=== PATIENT | female | born 1970 | race African-American/Black ===

== ENCOUNTER 2023-01-14 22:49 | Inpatient (IN) | payer MEDICAID, OTHER ==
[~2023-01-14] VITALS: Ht 172.7 cm; Wt 63.5 kg
[~2023-01-14 22:49] MED LIST: AMLO10TA80 PO; ASPI-1160 PO; CLOP-31 PO; GLIP5TAB12 MT; LIP40 PO
[2023-01-14] MEDS ORDERED: DEXTROSE 50% WATER 50ML SYRINGE IV ONE ×2 (23:42→23:45)
[2023-01-14] MEDS ORDERED: OCTREOTIDE ACETATE 50 MCG/ML 1ML IV ONE (23:45)
[2023-01-14] MEDS ORDERED: DEXT 10% WATER 1,000 ML IV ONE (23:45)
[2023-01-15 01:49] LABS: *AMPHETAMINES SCREEN URINE NEGATIVE (NEGATIVE); *BARBITURATES SCREEN URINE NEGATIVE (NEGATIVE); *BENZODIAZEPINES SCREEN URINE NEGATIVE (NEGATIVE); *COCAINE SCREEN URINE NEGATIVE (NEGATIVE); CANNABINOID URINE SCREEN NEGATIVE (NEGATIVE); METHADONE URINE SCREEN NEGATIVE (NEGATIVE); OPIATES URINE SCREEN NEGATIVE (NEGATIVE); PHENCYCLIDINE URINE SCREEN NEGATIVE (NEGATIVE)
[2023-01-15 01:50] LABS: BASOPHILS % 0.6 % (0.0-2.0); EOSINOPHILS % 0.8 % (0.0-5.0); HEMATOCRIT. 32.4 % (36.0-48.0); HEMOGLOBIN. 10.7 g/dL (12.0-16.0); LYMPHOCYTES % 13.7 % (20.0-50.0); MEAN CORPUSCULAR HEMOGLOBIN 31.9 pg (28.0-32.0); MEAN CORPUSCULAR VOLUME 96.3 fL (81.0-99.0); MEAN PLATELET VOLUME 7.4 fl (7.4-10.4); MONOCYTES % 9.9 % (2.0-8.0); PLATELET 364 x1000/uL (130-400); RED BLOOD CELL COUNT 3.36 mill/uL (4.2-5.4); RED CELL DISTRIBUTION WIDTH 13.7 % (11.6-14.6)
[2023-01-15] MEDS ORDERED: DEXTROSE 50% WATER 50ML SYRINGE IV ONE (02:00)
[2023-01-15 02:01] LABS: CHLORIDE 103 mEq/L (98-107)
[2023-01-15 02:10] LABS: ETHANOL BLOOD < 10 mg/dL
[2023-01-15] MEDS ORDERED: LORAZEPAM 0.5MG TABLET PO PRN (09:15)
[2023-01-15] MEDS ORDERED: ACETAMINOPHEN 325MG TABLET PO PRN ×2 (09:15)
[2023-01-15] MEDS ORDERED: HYDROCODONE/ACETAMINOPHEN 5/325MG TABLET PO PRN (09:15)
[2023-01-15] MEDS ORDERED: DOCUSATE SODIUM 100MG CAPSULE PO PRN (09:15)
[2023-01-15] MEDS ORDERED: ONDANSETRON HCL 4MG/2ML INJ IV PRN (09:15)
[2023-01-15] MEDS ORDERED: IPRATROPIUM/ALBUTEROL 0.5-3(2.5)MG/3ML NEB HHN PRN (09:15)
[2023-01-15] MEDS: CLONIDINE 0.1MG TABLET PO PRN ×2 (09:26→18:31)
[2023-01-15 10:00] VITALS: BP 179/109
[2023-01-15 10:47] VITALS: BP 179/109
[2023-01-15 12:00] VITALS: BP 156/80
[2023-01-15] MEDS: CLOPIDOGREL 75MG TABLET PO SCH (12:20)
[2023-01-15] MEDS: ASPIRIN 81MG TABLET PO SCH (12:20)
[2023-01-15] MEDS ORDERED: DEXTROSE 50% WATER 50ML SYRINGE IV PRN (12:45)
[2023-01-15 15:00] VITALS: BP 168/93
[2023-01-15 15:31] LABS: HEPATITIS B SURFACE ANTIGEN NEGATIVE
[2023-01-15 16:00] VITALS: BP 174/87
[2023-01-15] MEDS: BLOOD SUGAR DIAGNOSTIC STRIP TEST SCH ×2 (16:37→20:21)
[2023-01-15] MEDS: INSULIN LISPRO 100 UNITS/ML SUBCUT SCH ×2 (17:33→20:21)
[2023-01-15 20:00] VITALS: BP 133/77
[2023-01-15] MEDS ORDERED: NALOXONE HCL 0.4MG/ML VIAL IV PRN (20:15)
[2023-01-15] MEDS: ATORVASTATIN CALCIUM 40MG TABLET PO SCH (20:19)
[2023-01-16] VITALS: BP 150/77
[2023-01-16 04:00] VITALS: BP 130/70
[2023-01-16 05:47] LABS: BASOPHILS % 0.8 % (0.0-2.0); EOSINOPHILS % 1.9 % (0.0-5.0); HEMATOCRIT. 27.7 % (36.0-48.0); HEMOGLOBIN. 9.2 g/dL (12.0-16.0); LYMPHOCYTES % 20.3 % (20.0-50.0); MEAN CORPUSCULAR HEMOGLOBIN 32.4 pg (28.0-32.0); MEAN CORPUSCULAR VOLUME 97.1 fL (81.0-99.0); MEAN PLATELET VOLUME 7.8 fl (7.4-10.4); MONOCYTES % 11.9 % (2.0-8.0); NEUTROPHILS % 65.1 % (40.0-76.0); PLATELET 303 x1000/uL (130-400); RED BLOOD CELL COUNT 2.85 mill/uL (4.2-5.4)
[2023-01-16] MEDS: BLOOD SUGAR DIAGNOSTIC STRIP TEST SCH ×4 (06:20→21:39)
[2023-01-16] MEDS: INSULIN LISPRO 100 UNITS/ML SUBCUT SCH ×4 (06:24→21:00)
[2023-01-16 08:00] VITALS: BP 157/86
[2023-01-16] MEDS: ASPIRIN 81MG TABLET PO SCH (09:16)
[2023-01-16] MEDS: AMLODIPINE 10MG TABLET PO SCH (09:16)
[2023-01-16] MEDS: CLOPIDOGREL 75MG TABLET PO SCH (09:17)
[2023-01-16 12:00] VITALS: BP 148/70
[2023-01-16] MEDS: INSULIN GLARGINE 100 UNITS/ML SUBCUT SCH (12:45)
[2023-01-16 16:00] VITALS: BP 157/86
[2023-01-16 20:00] VITALS: BP 169/94
[2023-01-16] MEDS: ATORVASTATIN CALCIUM 40MG TABLET PO SCH (21:38)
[2023-01-16] MEDS: CLONIDINE 0.1MG TABLET PO PRN (21:39)
[2023-01-17] VITALS (12 sets, daily range): BP systolic 124–168; BP diastolic 63–90
[2023-01-17 06:33] LABS: BASOPHILS % 0.5 % (0.0-2.0); HEMATOCRIT. 28.2 % (36.0-48.0); HEMOGLOBIN. 9.2 g/dL (12.0-16.0); LYMPHOCYTES % 28.2 % (20.0-50.0); MEAN CORPUSCULAR HEMOGLOBIN 31.7 pg (28.0-32.0); MEAN CORPUSCULAR VOLUME 97.1 fL (81.0-99.0); MEAN PLATELET VOLUME 7.3 fl (7.4-10.4); MONOCYTES % 14.6 % (2.0-8.0); NEUTROPHILS % 54.7 % (40.0-76.0); PLATELET 300 x1000/uL (130-400); RED CELL DISTRIBUTION WIDTH 13.8 % (11.6-14.6)
[2023-01-17] MEDS: BLOOD SUGAR DIAGNOSTIC STRIP TEST SCH ×3 (06:43→16:40)
[2023-01-17] MEDS: INSULIN LISPRO 100 UNITS/ML SUBCUT SCH ×3 (07:10→17:10)
[2023-01-17] MEDS: ASPIRIN 81MG TABLET PO SCH (09:43)
[2023-01-17] MEDS: AMLODIPINE 10MG TABLET PO SCH (09:44)
[2023-01-17] MEDS: CLOPIDOGREL 75MG TABLET PO SCH (09:44)
[2023-01-17] MEDS: INSULIN GLARGINE 100 UNITS/ML SUBCUT SCH (09:53)
[2023-01-17] MEDS ORDERED: LANTUSUD SUBCUT (12:39)
== END 2023-01-17 20:43 | disposition home or self-care (01) | DRG 420 ==
LOC: ER 22:49 → EDBEDREQ 01-15 00:17 → MICUSO 01-15 06:45 → 7EST 01-15 08:06
PROVIDERS: ADMIT Internal Medicine; ATTEND Internal Medicine
PROC: 5A1D70Z Performance of Urinary Filtration, Intermittent, Less than 6 Hours Per Day (ICD-10-PCS; principal; 2023-01-15)
PROC: 5A1D70Z Performance of Urinary Filtration, Intermittent, Less than 6 Hours Per Day (ICD-10-PCS; 2023-01-17)
DX: E11.649 Type 2 diabetes mellitus with hypoglycemia without coma (principal); I12.0 Hypertensive chronic kidney disease with stage 5 chronic kidney disease or end stage renal disease; E11.22 Type 2 diabetes mellitus with diabetic chronic kidney disease; I63.9 Cerebral infarction, unspecified; D64.9 Anemia, unspecified; D72.829 Elevated white blood cell count, unspecified; E11.65 Type 2 diabetes mellitus with hyperglycemia; I16.1 Hypertensive emergency; N18.6 End stage renal disease; Z99.2 Dependence on renal dialysis; Z86.73 Personal history of transient ischemic attack (TIA), and cerebral infarction without residual deficits
CPT/HCPCS: 36415; 71045; 80048; 80053; 80305; 80320; 82962; 83605; 84484; 85025; 86705; 86709; 86803; 87340; 90935; 99291; J1815; J2354; G0480